=== PATIENT | female | born 1940 | race African-American/Black ===

== ENCOUNTER 2019-12-03 18:11 | Inpatient (IN) ==
[2019-12-03] MEDS ORDERED: SODIUM CHLORIDE 0.9% 1,000 ML IV STA (18:45)
[2019-12-03] MEDS ORDERED: PANTOPRAZOLE 40 MG VIAL IV STA (18:45)
[2019-12-03] MEDS ORDERED: ONDANSETRON 4 MG/2 ML VIAL IV STA (18:45)
[2019-12-03] MEDS ORDERED: methylPREDNISolone SOD SUC 125 MG/2 ML VIAL IV STA (19:44)
[2019-12-03] MEDS ORDERED: AZITHROMYCIN INJ 500 MG in SODIUM CHLORIDE 0.9% 250 ML IV STA (19:44)
[2019-12-03] MEDS ORDERED: VANCOMYCIN INJ 1,000 MG in SODIUM CHLORIDE 0.9% 250 ML IV SCH (20:00)
[2019-12-03] MEDS ORDERED: VANCOMYCIN INJ 1,000 MG in SODIUM CHLORIDE 0.9% 250 ML IV STA (20:16)
[2019-12-03] MEDS ORDERED: VANCOMYCIN 1,000 MG VIAL ONE (20:24)
[2019-12-03 21:29] LABS: Immature Granulocytes % 0.6 %; Immature Granulocytes Absolute 0.03 #; Lymphocytes % 19.3 % (21.3-54.2); Mean Corpuscular HGB Conc 33.3 GM/DL (32-36); Mean Corpuscular Volume 97.3 FL (87-102); Mean Platelet Volume 9.9 FL (9.6-12.0); Monocytes % 11.9 % (1.7-12.7); Neutrophils % 68.2 % (38.7-73.9); Platelet Count 137 T/CUMM (130-400); Red Cell Distribution Width 12.1 % (9.3-17.3)
[2019-12-03 21:41] LABS: PT Patient Result 10.9 SECS (9.8-11.9); Partial Thromboplastin Time 30.2 SECS (23.9-33.8)
[2019-12-03 21:41] LABS: Albumin 2.4 G/DL (3.4-5.0); Bilirubin,Total 0.4 MG/DL (0.2-1.0); Calcium 7.5 MG/DL (8.5-10.1); Ferritin 293.7 ng/ml (8-252); Osmolality,Calculated 262.2 MOS/KG (273-304); Total Protein 6.2 G/DL (6.4-8.3)
[2019-12-03] MEDS ORDERED: DEXTROSE 50% 25 GM/50 ML SYRINGE IV ONE (21:45)
[2019-12-03] MEDS ORDERED: DEXTROSE 50% 25 GM/50 ML VIAL IV STA (21:58)
[2019-12-03] MEDS ORDERED: DEXTROSE 5% 250 ML IV SCH (22:00)
[2019-12-03] MEDS ORDERED: GLUCAGON 1 MG VIAL IM PRN (22:14)
[2019-12-03] MEDS ORDERED: ONDANSETRON 4 MG/2 ML VIAL IV PRN (22:14)
[2019-12-03] MEDS ORDERED: DEXTROSE 50% 25 GM/50 ML VIAL IV PRN (22:14)
[2019-12-03 22:40] LABS: Lymphocytes 21 % (20-55); Platelet Estimate Normal; Segmented Neutrophils 69 % (50-85); Total Cells Counted 100
[2019-12-03 22:43] LABS: Microcytosis Slight
[2019-12-04] MEDS: DIVALPROEX 250 MG TABLET PO SCH ×2 (02:06→08:56)
[2019-12-04 06:54] LABS: Basophils % 0.3 % (0.0-0.8); Hematocrit 41.8 VOL% (35.7-47.0); Hemoglobin 13.7 GM/DL (12.0-16.0); Immature Granulocytes % 0.9 %; Immature Granulocytes Absolute 0.03 #; Lymphocytes # 0.7 10*3/uL (1.4-4.0); Lymphocytes % 21.9 % (21.3-54.2); Mean Corpuscular HGB Conc 32.8 GM/DL (32-36); Mean Platelet Volume 10.3 FL (9.6-12.0); Monocytes % 5.7 % (1.7-12.7); Neutrophils % 71.2 % (38.7-73.9); Platelet Count 155 T/CUMM (130-400); Red Blood Count 4.31 MC/CUMM (3.8-5.5); Red Cell Distribution Width 11.8 % (9.3-17.3); White Blood Count 3.3 T/CUMM (4-12)
[2019-12-04 07:24] LABS: Calcium 8.4 MG/DL (8.5-10.1); Ferritin 350.8 ng/ml (8-252); Osmolality,Calculated 281.2 MOS/KG (273-304)
[2019-12-04 08:30] LABS: Lymphocytes 12 % (20-55); Platelet Estimate Adequate; Polychromasia Slight; Segmented Neutrophils 80 % (50-85); Total Cells Counted 100
[2019-12-04 08:36] LABS: Burr Cells Slight
[2019-12-04] MEDS: INSULIN LISPRO 100 UNIT/ML SUBCUT SCH ×2 (08:57→12:50)
[2019-12-04] MEDS ORDERED: GLIMEPIRIDE 2 MG TABLET PO SCH (09:00)
[2019-12-04] MEDS ORDERED: POTASSIUM CHLORIDE 20 MEQ TABLET PO SCH (09:00)
[2019-12-04] MEDS ORDERED: DILTIAZEM CD 180 MG CAPSULE PO SCH (09:00)
[2019-12-04] MEDS ORDERED: LEVOFLOXACIN INJ 750 MG in PREMIX 1 EACH IV SCH (09:00)
[2019-12-04] MEDS ORDERED: ATORVASTATIN 10 MG TABLET PO SCH (09:00)
[2019-12-04] MEDS ORDERED: LOSARTAN 50 MG TABLET PO SCH (09:00)
[2019-12-04] MEDS ORDERED: ESCITALOPRAM 10 MG TABLET PO SCH (09:00)
[2019-12-04] MEDS ORDERED: risperiDONE 1 MG TABLET PO SCH (09:00)
[2019-12-04] MEDS ORDERED: FUROSEMIDE 20 MG TABLET PO SCH (09:00)
[2019-12-04] MEDS ORDERED: GABAPENTIN 100 MG CAPSULE PO SCH (09:00)
[2019-12-04] MEDS ORDERED: RALOXIFENE 60 MG TABLET PO SCH (09:00)
[2019-12-04 11:34] VITALS: BP 100/68
== END 2019-12-04 14:10 | DRG 177 ==
LOC: N.ED 18:11 → N.EDINP 22:14 → N.2E 22:41
PROVIDERS: ADMIT Internal Medicine; ATTEND Internal Medicine